=== PATIENT | female | born 1965 | race Caucasian/White ===

== ENCOUNTER → 2019-06-19 | Outpatient (CLI) | payer BC ==
--- NOTE | 2019-06-19 08:51 | US ---
EXAMINATION TYPE: US pelvis complete transvag DATE OF EXAM: 06/19/2019 COMPARISON: NONE CLINICAL HISTORY: N95.0 post menopausal bleeding. TECHNIQUE: . Transabdominal sonographic images of the pelvis were acquired. Transvaginal sonographi c images were medically necessary to better assess the following anatomy: uterus and ovaries Date of LMP: 2017 EXAM MEASUREMENTS: Uterus: 10.6 x 6.1 x 5.9 cm Endometrial Stripe: 1.7 cm Right Ovary: 2.1 x 1.7 x 1.4 cm Left Ovary: 1.7 x 1.7 x 1.1 cm 1. Uterus: Anteverted Bulky and heterogeneous, hypoechoic area measuring 1.6 x 1.0 x 1.2 cm, proba ble fibroid. Nabothian cysts visualized 2. Endometrium: Thickened and heterogeneous 3. Right Ovary: wnl 4. Left Ovary: wnl 5. Bilateral Adnexa: wnl 6. Posterior cul-de-sac: wnl IMPRESSION: 1. Probable uterine fibroid. 2. Thickened and heterogenous endometrium.
[2019-06-19 17:19] LABS: Estradiol 53.4 pg/mL; Follicle Stimulating Hormone 21.9 mIU/mL
== END | disposition home or self-care (01) ==
LOC: RADUSWWP 08:08
PROVIDERS: ATTEND Obstetrics & Gynecology
DX: N95.0 Postmenopausal bleeding (principal)
CPT/HCPCS: 76830; 76856; 82670; 83001

== ENCOUNTER → 2019-07-04 | Outpatient (CLI) | payer BC | END | disposition home or self-care (01) | LOC: LABWHC1 08:44 | PROVIDERS: ATTEND Obstetrics & Gynecology | DX: Z11.59 Encounter for screening for other viral diseases (principal) | CPT/HCPCS: 87635 ==

== ENCOUNTER 2019-07-08 06:04 | Day surgery (SDC) | payer BC ==
[2019-07-02 14:11] VITALS: BMI 40.4
--- NOTE | 2019-07-07 18:37 | P.HPOB ---
History of Present Illness H&P Date: 07/07/19 Chief Complaint: Postmenopausal bleeding This patient is a pleasant 53-year-old 5 para 5 female who presented to my office for complaints of postmenopausal bleeding since the end of April. Patient had a transvaginal ultrasound which showed thickening of the endometrium to 1.7 cm that was heterogeneous. I did check hormone levels on her which were equivocal. Patient now presents for hysteroscopy and D&C for further evaluation. Review of Systems Genitourinary: Reports as per HPI Menstruation: Reports as per HPI, Reports postmenopausal Past Medical History Past Medical History: No Reported History Additional Past Medical History / Comment(s): seasonal allergies. rt varicose veins. post mensopausal bleeding with thickened uterine lining History of Any Multi-Drug Resistant Organisms: None Reported Additional Past Surgical History / Comment(s): lt varicose vein sx. colonoscopy Past Anesthesia/Blood Transfusion Reactions: Motion Sickness, Postoperative Nausea & Vomiting (PONV) Past Psychological History: No Psychological Hx Reported Smoking Status: Never smoker Past Alcohol Use History: None Reported Past Drug Use History: None Reported - Past Family History Father Family Medical History: Cancer, Deep Vein Thrombosis (DVT) Mother Family Medical History: Cancer Medications and Allergies Home Medications Medication Instructions Recorded Confirmed Type Meclizine [Antivert] 25 mg PO TID PRN 03/12/14 07/02/19 History Aspirin [Adult Low Dose Aspirin EC] 81 mg PO DAILY 07/02/19 07/02/19 History Loratadine [Claritin] 10 mg PO DAILY 07/02/19 07/02/19 History Multivitamins, Thera [Multivitamin 1 tab PO DAILY 07/02/19 07/02/19 History (formulary)] Allergies Allergy/AdvReac Type Severity Reaction Status Date / Time No Known Allergies Allergy Verified 07/02/19 14:06 Exam - OBG Physical Exam Abdomen: bowel sounds normal, no diffuse tenderness, no bruit present, no guarding noted, no hepatomegaly, no splenomegaly, no mass Vulva: both: normal Vagina: normal moisture, no discharge Cervix: no lesion, no discharge Uterus: normal size, normal contour Adnexa: both: normal Results Transvaginal ultrasound shows a small fibroid. Endometrium was 1.7 cm which is heterogeneous. Assessment and Plan Assessment: This is a pleasant 53-year-old 5 para 5 female with a recent history of postmenopausal bleeding and abnormal thickening on pelvic ultrasound. Plan is hysteroscopy and D&C for further evaluation. Patient understands this surgery and risks including risks of infection, bleeding, possible uterine perforation. All the patient's questions are answered and a written consent is obtained. (1) Post-menopausal bleeding Status: Acute Code(s): N95.0 - POSTMENOPAUSAL BLEEDING SNOMED Code(s): 17756113 (2) Endometrial thickening on ultrasound Status: Acute Code(s): R93.89 - ABNORMAL FINDINGS ON DX IMAGING OF OTH BODY STRUCTURES SNOMED Code(s): 270783244
[~2019-07-08 06:04] MED LIST: DEXAMETHASONE SOD PHOSPHATE 10 MG/ML 1 ML VIAL IV ONE; HYDROmorphone 0.5 MG/0.5 ML SYRINGE IVP PRN; LACTATED RINGERS 1,000 ML IV SCH; LIDOCAINE 1% (10MG/ML) FOR IV START INTRADERMA PRN; MIDAZOLAM 2 MG/2 ML VIAL IV PRN; ONDANSETRON 4 MG/2 ML VIAL IVP ONE; Pre Op ABX Message 1 EACH MISC MISCELLANE ONE; fentaNYL (PF) 50 MCG/ML 2 ML AMP IV PRN
[2019-07-08 06:28] VITALS: RESP 16
[2019-07-08] MEDS ORDERED: SCOPOLAMINE 1.5MG/72HR PATCH TRANSDERM ONE (06:39)
[2019-07-08] MEDS ORDERED: MIDAZOLAM 2 MG/2 ML VIAL ONE (06:53)
[2019-07-08] MEDS ORDERED: LIDOCAINE 1% INJ 10MG/ML (20 ML MDV) ONE (06:53)
[2019-07-08] MEDS ORDERED: SUCCINYLCHOLINE CHLORIDE 100 MG/5 ML SYR IV ONE (06:53)
[2019-07-08] MEDS ORDERED: PROPOFOL 10 MG/ML 20 ML VIAL IV ONE (06:53)
[2019-07-08] MEDS ORDERED: ONDANSETRON 4 MG/2 ML VIAL ONE (06:53)
[2019-07-08] MEDS ORDERED: KETOROLAC 30 MG/ML 1 ML VIAL ONE (06:53)
[2019-07-08 07:33] VITALS: TEMP 97.2
--- NOTE | 2019-07-08 07:36 | P.OP ---
Date of Procedure: 07/08/19 Preoperative Diagnosis: Post menopausal bleeding with endometrial thickening Postoperative Diagnosis: Same Procedure(s) Performed: #1: Hysteroscopy #2: Dilation and curettage Anesthesia: LARRY Surgeon: Casper Carrillo Estimated Blood Loss (ml): 10 Urine output (ml): 50 Pathology: other (Uterine curettings) Condition: stable Disposition: PACU Indications for Procedure: Please see dictated H&P for intimate details of this patient's admission. Brief summary this pleasant 53-year-old female with postmenopausal bleeding and abnormal thickening on transvaginal ultrasound. Patient I discussed further evaluation elected proceed with hysteroscopy D&C for further investigation. Patient understands this surgery and risks including risks of infection, bleeding, possible uterine perforation. All the patient's questions are answered written consent is obtained. Operative Findings: This patient had some thickening anteriorly and there was a benign-appearing polyp posteriorly that was about 1 cm. Description of Procedure: This patient is taken to the operating room where she is laid in the supine position. She subsequent undergoes general endotracheal anesthesia without incident. With an adequate level of anesthesia she's placed in dorsal lithotomy position. She has a vaginal perineal prep and drape. Examination under anesthesia shows a mid position uterus of normal size. Bladder is drained for clear urine at this time. Weighted speculum placed in the posterior vagina. The anterior lip of the cervix was grabbed with an Allis clamp. I didn't sound the uterus to 9.5 cm. Gentle dilation is then done of the endocervix to allow the hysteroscope easily and uterine cavity. Using saline solution, hysteroscopy is performed and the uterine cavity is completely observed. There is a benign appearing polyp posteriorly about 1 cm. There is some thickening anteriorly but otherwise the cavity appears smooth. With this done the hysteroscope was then removed. Cervix is dilated more to allow the polyp forceps easily uterine cavity. Using polyp forceps on below remove multiple pieces of tissue. A gentle but thorough 4 quadrant curettage is then done again for adequate sampling. All this tissue is sent off to pathology. With this done the procedure is ended. The Allis clamp point speculum removed. All counts are correct 3. Patient is awakened from anesthesia and taken recovery room satisfactory condition. There are no complications.
[2019-07-08 08:41] VITALS: BP 117/76; PULSE 64
== END 2019-07-08 08:55 | disposition home or self-care (01) ==
LOC: OR 06:04
PROVIDERS: ATTEND Obstetrics & Gynecology
DX: N84.0 Polyp of corpus uteri (principal); N95.0 Postmenopausal bleeding; Z82.49 Family history of ischemic heart disease and other diseases of the circulatory system; Z80.9 Family history of malignant neoplasm, unspecified; K21.9 Gastro-esophageal reflux disease without esophagitis; E66.01 Morbid (severe) obesity due to excess calories; Z68.41 Body mass index [BMI] 40.0-44.9, adult; Z79.82 Long term (current) use of aspirin; Z79.899 Other long term (current) drug therapy
CPT/HCPCS: 58558; 88305; J2250; J1100; J2405; J2001; J1885; J0330; J2704

== ENCOUNTER → 2019-08-04 | Outpatient (CLI) | payer BC ==
--- NOTE | 2019-08-04 13:13 | MM ---
Reason for exam: screening (asymptomatic). Last mammogram was performed 1 year and 4 months ago. History: Patient is postmenopausal. Excisional biopsy of the left breast, 2014. Physical Findings: A clinical breast exam by your physician is recommended on an annual basis and results should be correlated with mammographic findings. MG Screening Mammo w CAD Bilateral CC and MLO view(s) were taken. XCCL view(s) were taken of the right breast. Prior study comparison[place] [facility] [place] [facility] [place] are scattered fibroglandular densities. Previous mammotome biopsy in the left breast. There is chronic nodularity in the left axilla centrally. There is no discrete abnormality. ASSESSMENT: Benign, BI-RAD 2 RECOMMENDATION: Routine screening mammogram of both breasts in 1 year.
== END | disposition home or self-care (01) ==
LOC: RADMAMWWP 11:14
PROVIDERS: ATTEND Obstetrics & Gynecology
DX: Z12.31 Encounter for screening mammogram for malignant neoplasm of breast (principal)
CPT/HCPCS: 77067

== ENCOUNTER → 2019-08-28 | Outpatient (CLI) | payer BC | END | disposition home or self-care (01) | LOC: LABPAT 12:54 | PROVIDERS: ATTEND Obstetrics & Gynecology | DX: Z01.818 Encounter for other preprocedural examination (principal); Z13.29 Encounter for screening for other suspected endocrine disorder; L65.9 Nonscarring hair loss, unspecified | CPT/HCPCS: 36415; 80048; 84439; 84443; 85025; 86850; 86900; 86901 ==

== ENCOUNTER 2019-09-04 06:02 | Day surgery (SDC) | payer BC ==
[2019-08-28 14:48] LABS: Basophils % (A) 0 %; Eosinophils # (A) 0.3 k/uL (0-0.7); Eosinophils % (A) 3 %; HCT 43.9 % (34.0-46.0); HGB 15.2 gm/dL (11.4-16.0); Lymphocytes # (A) 2.4 k/uL (1.0-4.8); Lymphocytes % (A) 28 %; MCH 31.8 pg (25.0-35.0); MCHC 34.5 g/dL (31.0-37.0); Mean Platelet Volume 6.9; Monocytes # (A) 0.4 k/uL (0-1.0); Monocytes % (A) 4 %; Neutrophils # (A) 5.4 k/uL (1.3-7.7); Neutrophils % (A) 62 %; Platelet Count 269 k/uL (150-450); RBC 4.78 m/uL (3.80-5.40); RDW 12.5 % (11.5-15.5); WBC 8.7 k/uL (3.8-10.6)
[2019-08-28 14:58] LABS: African American GFR (CKD) >90 (>60 ml/min/1.73 sqM); Anion Gap 8 mmol/L; Blood Urea Nitrogen 12 mg/dL (7-17); Calcium 9.7 mg/dL (8.4-10.2); Carbon Dioxide 29 mmol/L (22-30); Chloride 103 mmol/L (98-107); Glucose 90 mg/dL (74-99); Non-African American GFR(CKD) >90 (>60 ml/min/1.73 sqM); Potassium 4.7 mmol/L (3.5-5.1); Sodium 140 mmol/L (137-145)
[2019-08-28 15:13] LABS: T4, Free (Free Thyroxine) 1.06 ng/dL (0.78-2.19)
[2019-08-29 14:56] VITALS: BMI 40.1
--- NOTE | 2019-09-03 16:39 | P.HPOB ---
History of Present Illness H&P Date: 09/03/19 Chief Complaint: Atypical endometrial hyperplasia Patient is a 52-year-old female who had a D&C for post bleeding was noted to have endometrial hyperplasia. Both typical and atypical are noted. She is scheduled for a robotic-assisted laparoscopic hysterectomy with bilateral salpingo-oophorectomy. She is aware that there is a slight risk of concurrent cancer within the tissue sample which may require further surgery. She is also aware of risks do include but aren't limited to bleeding and infection, damage to bladder, to bowel injury, nerve injury, ureteral injury, as well as potential anesthetic issues and nerve or vessel damage. We reviewed the procedure in detail and all questions are answered for her prior to proceeding to the operating room. She is scheduled again for a robotic-assisted laparoscopic hysterectomy with bilateral salpingo-oophorectomy Past Medical History Additional Past Medical History / Comment(s): RT VARICOSE VEIN. SEASONAL ALLERGIES History of Any Multi-Drug Resistant Organisms: None Reported Past Surgical History: Uterine Ablation Additional Past Surgical History / Comment(s): LT VARICOSE VEIN SX. COLONOSCOPY Past Anesthesia/Blood Transfusion Reactions: Motion Sickness, Postoperative Nausea & Vomiting (PONV) Smoking Status: Never smoker - Past Family History Mother Family Medical History: Cancer Father Family Medical History: Cancer, Deep Vein Thrombosis (DVT) Medications and Allergies Home Medications Medication Instructions Recorded Confirmed Type Meclizine [Antivert] 25 mg PO TID PRN 03/12/14 08/29/19 History Aspirin [Adult Low Dose Aspirin EC] 81 mg PO DAILY 07/02/19 08/29/19 History Loratadine [Claritin] 10 mg PO DAILY 07/02/19 08/29/19 History Multivitamins, Thera [Multivitamin 1 tab PO DAILY 07/02/19 08/29/19 History (formulary)] Ibuprofen [Motrin] 600 mg PO Q6HR PRN #30 tab 07/08/19 08/29/19 Rx Allergies Allergy/AdvReac Type Severity Reaction Status Date / Time No Known Allergies Allergy Verified 08/29/19 14:44 Exam Osteopathic Statement: *. No significant issues noted on an osteopathic structural exam other than those noted in the History and Physical/Consult. - OBG Physical Exam Breast: both: normal (no masses) Abdomen: Obese Abdomen: bowel sounds normal, no diffuse tenderness, no bruit present, no guarding noted, no hepatomegaly, no splenomegaly, no mass Vulva: both: normal Vagina: normal moisture, no discharge Cervix: no lesion, no discharge Uterus: normal size, normal contour Adnexa: both: normal Anus/Rectum: normal perianal skin, no rectal mass, no hemorrhoids, heme negative Results Result Diagrams: 08/28/19 13:56 08/28/19 13:56
[~2019-09-04 06:02] MED LIST changes: -DEXAMETHASONE SOD PHOSPHATE 10 MG/ML 1 ML VIAL IV ONE; -HYDROmorphone 0.5 MG/0.5 ML SYRINGE IVP PRN; -LACTATED RINGERS 1,000 ML IV SCH; -LIDOCAINE 1% (10MG/ML) FOR IV START INTRADERMA PRN; -MIDAZOLAM 2 MG/2 ML VIAL IV PRN
[2019-09-04] MEDS ORDERED: ONDANSETRON 4 MG/2 ML VIAL ONE (06:37)
[2019-09-04] MEDS: LACTATED RINGERS 1,000 ML IV SCH ×2 (06:46→10:37)
[2019-09-04] MEDS ORDERED: DEXAMETHASONE SOD PHOSPHATE 10 MG/ML 1 ML VIAL IV ONE (06:47)
[2019-09-04] MEDS ORDERED: SCOPOLAMINE 1.5MG/72HR PATCH TRANSDERM ONE (06:47)
[2019-09-04] MEDS ORDERED: fentaNYL (PF) 50 MCG/ML 2 ML AMP ONE (07:33)
[2019-09-04] MEDS ORDERED: PROPOFOL 10 MG/ML 20 ML VIAL IV ONE (07:33)
[2019-09-04] MEDS ORDERED: ROCURONIUM BROMIDE 10 MG/ML 5 ML VIAL IV ONE (07:33)
[2019-09-04] MEDS ORDERED: HYDROmorphone (PF) 1 MG/ML ONE (07:33)
[2019-09-04] MEDS ORDERED: KETOROLAC 30 MG/ML 1 ML VIAL ONE (07:33)
[2019-09-04] MEDS ORDERED: MIDAZOLAM 2 MG/2 ML VIAL ONE (07:33)
[2019-09-04] MEDS ORDERED: NEOSTIGMINE 1 MG/ML 10 ML VIAL ONE (07:33)
[2019-09-04] MEDS ORDERED: SUCCINYLCHOLINE CHLORIDE 100 MG/5 ML SYR IV ONE (07:33)
[2019-09-04] MEDS ORDERED: GLYCOPYRROLATE 0.2 MG/ML 2 ML VIAL ONE (07:33)
[2019-09-04] MEDS ORDERED: hydrALAZINE HCL 20 MG/ML 1 ML VIAL ONE (07:33)
[2019-09-04] MEDS ORDERED: LIDOCAINE 1% INJ 10MG/ML (20 ML MDV) ONE (07:33)
[2019-09-04] MEDS ORDERED: ceFAZolin 1,000 MG VIAL IVPB ONE (07:42)
[2019-09-04] MEDS ORDERED: BUPIVACAINE (PF) 0.25% 30 ML VIAL SQ ONE ×2 (07:55)
[2019-09-04] MEDS ORDERED: SIMETHICONE 80 MG CHEWABLE PO PRN (08:58)
[2019-09-04] MEDS ORDERED: KETOROLAC 30 MG/ML 1 ML VIAL IVP PRN (08:58)
[2019-09-04] MEDS ORDERED: ONDANSETRON 4 MG/2 ML VIAL IVP PRN (08:58)
[2019-09-04] MEDS ORDERED: HYDROcodone/APAP 7.5-325MG 1 EACH TAB PO PRN (09:01)
--- NOTE | 2019-09-04 09:07 | P.OP ---
Date of Procedure: 09/04/19 Preoperative Diagnosis: Complex hyperplasia Postoperative Diagnosis: Same Procedure(s) Performed: Robotic-assisted left scopic hysterectomy with bilateral salpingo-oophorectomy Anesthesia: LARRY Surgeon: Abiodun Zaman Flag Signaler #1: Lynette Sandoval Estimated Blood Loss (ml): 50 IV fluids (ml): 800 Urine output (ml): 200 Pathology: other (uterus, cervix, fallopian tubes, and ovaries) Condition: stable Disposition: floor Operative Findings: Tissue pathology pending Description of Procedure: Patient was taken to the operating suite where a general anesthetic was found be adequate. She was prepped and draped in the normal sterile fashion and placed in the dorsal lithotomy position. Weighted second was then inserted anterior lip surface identified grasped with single tooth tenaculum and sounded to 9 cm. Cervix was then dilated and cup size was measured to 3.5 cm and Zoe manipulator was inserted without difficulty with sutures placed at 3 and 9 for assistance in removal. The remainder of the incidents were then removed and a Garcia cath was placed. Gloves were then changed and attention attention was turned to the abdominal portion procedure where 3 mL of quarter percent Marcaine was injected periumbilically. Through this injected anesthetic a 5 mm skin incision was made and through this incision under direct visualization with an optical trocar and sleeve the camera was inserted. Once peritoneal placement was assured gas was allowed to fully and slick abdomen and patient was then placed in steep Trendelenburg position. 28 mm skin incision was then made lateral to the umbilicus approximately 12 cm and these 8 mm robotic ports were then placed under direct visualization. Between the left lateral and the medial port a $0.01 immune incision was made and through this incision a 10 mm pet care assistant port was placed. Camera port was then exchanged for robotic port and robot was brought in and docked. Once fully docked a scissor was placed in the forearm and a Maryland grasper in the 2 arm. At this point I broke scrub and went to the console. Observations pelvis were noted. Patient had been placed and 25 Trendelenburg. Bowels moved out of the operative field as best as possible. Initially uterus was elevated and tipped to the right side and the left fallopian tube was elevated and the infundibular pelvic ligament was identified cauterized transected and then the mesosalpinx tissue was cauterized and transected to the level of the round ligament. Round blade was then cauterized transected and anterior posterior leafs were developed. Vascular on the left side of the uterus was then cauterized once this was completed with some dissection down to approximately the level of the cardinal ligaments bladder flap was identified elevated and entered with metastases scissors and carried across face uterus undermining with [place] incising with a scissor. Latter was then dissected out of the operative field and attention was turned to the right side of the uterus which was developed in similar fashion. This completed bladder was verified it was out of the operative field and vascularity [place] right and left side were felt to be cauterized. Balloon was then blown up in the Zoe manipulator and an anterior colpotomy was made. This incision was then followed around in a 360 fashion. Cheating head when necessary to maintain ex cellent hemostasis following the cup the entire way with the scissor. Once 3 and 60 was accomplished uterus was brought into the vagina to maintain pneumoperitoneum and pedicles were verified to be hemostatic. Once this was accomplished incidents were exchanged for a make suture cut and a Rhys grasper and the vaginal cuff was closed with 20 be lock suture in a running fashion. Once this was completed pelvis was irrigated no bleeding is noted on the pedicles and therefore Allis was removed and gas allowed to expel from the abdomen. 5 deep breaths were provided during this process. At this point Dr. Sandoval close the incision subcuticularly and I did a cystoscopy with excellent flow noted from both ureteral jets. The remaining 7 mL of quarter percent Marcaine was then injected around these incisions. Sponge, lap, needle counts were all correct 2. Patient was then taken to the recovery room in stable and satisfactory condition.
[2019-09-04] MEDS ORDERED: MECLIZINE 25 MG TAB PO PRN (10:16)
[2019-09-04] MEDS: SENNOSIDES-DOCUSATE SODIUM 1 EACH TAB PO SCH ×2 (10:52→20:00)
[2019-09-04] MEDS: amLODIPine 5 MG TAB PO SCH (10:53)
[2019-09-04] MEDS: PANTOPRAZOLE 40 MG/10 ML VIAL IVP SCH (13:42)
[2019-09-04 14:38] LABS: Basophils % (A) 0 %; Eosinophils % (A) 0 %; HCT 44.2 % (34.0-46.0); HGB 14.8 gm/dL (11.4-16.0); Lymphocytes # (A) 0.9 k/uL (1.0-4.8); Lymphocytes % (A) 7 %; MCH 31.4 pg (25.0-35.0); MCHC 33.5 g/dL (31.0-37.0); MCV 93.9 fL (80.0-100.0); Mean Platelet Volume 7.2; Monocytes # (A) 0.3 k/uL (0-1.0); Monocytes % (A) 2 %; Neutrophils % (A) 91 %; Platelet Count 249 k/uL (150-450); RBC 4.71 m/uL (3.80-5.40); RDW 12.4 % (11.5-15.5); WBC 13.2 k/uL (3.8-10.6)
[2019-09-04 14:50] LABS: ALT 53 U/L (4-34); AST 51 U/L (14-36); African American GFR (CKD) >90 (>60 ml/min/1.73 sqM); Albumin 4.2 g/dL (3.5-5.0); Alkaline Phosphatase 66 U/L (38-126); Anion Gap 12 mmol/L; Blood Urea Nitrogen 12 mg/dL (7-17); Calcium 8.9 mg/dL (8.4-10.2); Carbon Dioxide 21 mmol/L (22-30); Chloride 102 mmol/L (98-107); Glucose 222 mg/dL (74-99); Non-African American GFR(CKD) >90 (>60 ml/min/1.73 sqM); Potassium 4.3 mmol/L (3.5-5.1); Sodium 135 mmol/L (137-145); Total Bilirubin 0.6 mg/dL (0.2-1.3); Total Protein 6.9 g/dL (6.3-8.2)
--- NOTE | 2019-09-04 15:39 | CONS ---
CONSULTATION REASON FOR CONSULTATION: Advice regarding hypertension, requested by Dr. Zaman. HISTORY OF PRESENT ILLNESS: This 53-year-old woman with a past medical history of multiple medical problems, including history, right varicose vein, seasonal allergies, history of uterine ablation, being followed by Dr. Solorio in the outpatient setting, was admitted after robotic-assisted hysterectomy with bilateral salpingo-oophorectomy by Dr. Zaman. The patient was found to be hypertensive postoperatively and is admitted for further evaluation and treatment. The blood pressure is elevated at 158/72 and 150/71. There is no history of fever, rigor or chills. No history of headache. No chest pain or palpitation at this time. PAST MEDICAL HISTORY: History of varicose veins, seasonal allergies, hysterectomy, uterine ablation. HOME MEDICATIONS: 1. Multivitamins 1 p.o. daily. 2. Antivert 25 mg t.i.d. p.r.n. 3. Claritin 10 mg daily. 4. Motrin 600 mg t.i.d. p.r.n. 5. Aspirin 81 mg daily. ALLERGIES: NONE. FAMILY HISTORY: History of cancer in the family. SOCIAL HISTORY: No history of smoking. No history of alcohol intake. REVIEW OF SYSTEMS: ENT: No diminished hearing. No diminished vision. CARDIOVASCULAR SYSTEM: No angina, palpitations. RESPIRATORY SYSTEM: No cough, hemoptysis. GI: No nausea, vomiting. : No dysuria or retention. NERVOUS SYSTEM: No numbness, weakness. ALLERGY/IMMUNOLOGY: No asthma, hayfever. MUSCULOSKELETAL: As mentioned earlier. HEMATOLOGY/ONCOLOGY: No history of anemia. ENDOCRINE: No history of diabetes, hypothyroidism. CONSTITUTIONAL: As mentioned earlier. DERMATOLOGY: Negative. RHEUMATOLOGY: Negative. PSYCHIATRY: As mentioned earlier. PHYSICAL EXAMINATION: Patient alert and oriented x3. Pulse 68, blood pressure 131/77, respiration 18, temperature 97.8, pulse ox 98% on room air. HEENT: Conjunctivae normal. NECK: No jugular venous distention. CARDIOVASCULAR SYSTEM: S1, S2 muffled. RESPIRATORY SYSTEM: Breath sounds diminished at the bases. No rhonchi. No crackles. ABDOMEN: Soft. Status post surgery. LEGS: No edema. No swelling. NERVOUS SYSTEM: No focal deficit. SKIN: No ulcer, rash, bleeding. JOINTS: No active deforming arthropathy. LABS: WBC 13.2. Sodium 135. Glucose is 222. AST is 51, ALT is 53. ASSESSMENT: 1. Status post robotic-assisted hysterectomy with bilateral salpingo-oophorectomy. 2. Hypertension. 3. Increased white count, possibly reactive. 4. Hyponatremia. 5. Elevated random glucose. 6. Increased AST, ALT. 7. History of varicose veins. 8. History of seasonal allergies. 9. History of motion sickness. 10.Obesity with body mass index of 40.8. 11.FULL CODE. RECOMMENDATIONS AND DISCUSSION: In this 53-year-old woman who presented with multiple complex medical issues, we will monitor the patient closely. I would recommend a small dose of Norvasc 5 mg daily and continue to monitor. Otherwise, the patient is at present hypertensive. The patient may be sent home on prescription of Norvasc. Otherwise, I recommend the patient follow blood pressure closely in the outpatient setting. I would also recommend repeat labs. Several lab abnormalities are detected which could be followed up in the outpatient setting. We will follow the patient closely with you while the patient is hospitalized. Thank you, Dr. Zaman, for letting us participate in the care of this patient. A copy of this dictation is being forwarded to Dr. Solorio, who is the primary physician. MMODL / IJN: [id number] /
[2019-09-04 20:10] VITALS: RESP 16
[2019-09-04 21:16] LABS: Glucose,Whole Blood 134 mg/dL (75-99)
[2019-09-05 07:23] LABS: Glucose,Whole Blood 106 mg/dL (75-99)
[2019-09-05 07:55] LABS: Basophils % (A) 0 %; Eosinophils % (A) 0 %; HCT 39.2 % (34.0-46.0); HGB 13.1 gm/dL (11.4-16.0); Lymphocytes # (A) 2.8 k/uL (1.0-4.8); Lymphocytes % (A) 22 %; MCH 30.6 pg (25.0-35.0); MCHC 33.4 g/dL (31.0-37.0); MCV 91.5 fL (80.0-100.0); Mean Platelet Volume 7.3; Monocytes # (A) 0.5 k/uL (0-1.0); Monocytes % (A) 4 %; Neutrophils % (A) 71 %; Platelet Count 239 k/uL (150-450); RBC 4.29 m/uL (3.80-5.40); RDW 12.6 % (11.5-15.5); WBC 12.7 k/uL (3.8-10.6)
[2019-09-05 08:10] LABS: African American GFR (CKD) >90 (>60 ml/min/1.73 sqM); Anion Gap 7 mmol/L; Blood Urea Nitrogen 11 mg/dL (7-17); Calcium 8.9 mg/dL (8.4-10.2); Carbon Dioxide 27 mmol/L (22-30); Chloride 105 mmol/L (98-107); Glucose 107 mg/dL (74-99); Non-African American GFR(CKD) >90 (>60 ml/min/1.73 sqM); Potassium 4.6 mmol/L (3.5-5.1); Sodium 139 mmol/L (137-145)
--- NOTE | 2019-09-05 08:22 | P.DS ---
Providers Expected date of discharge: 09/05/19 Attending physician: Abiodun Zaman Consults: 09/04/19 08:58 Consult Physician Routine Consulting Provider: Elvia Cruz Consult Reason/Comments: medical managment Do you want consulting provider notified?: Yes Primary care physician: Elvia Cruz Hospital Course: Helga is doing very well post op day 1. She is involuting, voiding and tolerating her diet. She voices no complaints. Vital signs are stable and afebrile. Heart regular, lungs clear, extremities without pain. Abdomen is soft she has positive bowel sounds and her incisions are intact. She is passing flatus and voices no other complaints and is requesting discharge to home today. Prescription for Motrin and Batchelor were forwarded to the pharmacy and all other questions are answered for her prior to her discharge. We did spend several minutes reviewing discharge instructions and she is stable for discharge this time. Patient Condition at Discharge: Good Plan - Discharge Summary Discharge Rx Participant: Yes New Discharge Prescriptions: New Ibuprofen [Motrin] 600 mg PO Q6HR PRN #30 tab PRN Reason: Pain HYDROcodone/APAP 5-325MG [Batchelor 5-325] 1 tab PO Q4HR PRN #30 tab PRN Reason: Pain No Action Meclizine [Antivert] 25 mg PO TID PRN PRN Reason: Vertigo Multivitamins, Thera [Multivitamin (formulary)] 1 tab PO DAILY Loratadine [Claritin] 10 mg PO DAILY Aspirin [Adult Low Dose Aspirin EC] 81 mg PO DAILY Ibuprofen [Motrin] 600 mg PO Q6HR PRN #30 tab PRN Reason: Pain Discharge Medication List Meclizine [Antivert] 25 mg PO TID PRN 03/12/14 [History] Aspirin [Adult Low Dose Aspirin EC] 81 mg PO DAILY 07/02/19 [History] Loratadine [Claritin] 10 mg PO DAILY 07/02/19 [History] Multivitamins, Thera [Multivitamin (formulary)] 1 tab PO DAILY 07/02/19 [History] Ibuprofen [Motrin] 600 mg PO Q6HR PRN #30 tab 07/08/19 [Rx] HYDROcodone/APAP 5-325MG [[place]lor 5-325] 1 tab PO Q4HR PRN #30 tab 07/24/20 [Rx] Ibuprofen [Motrin] 600 mg PO Q6HR PRN #30 tab 09/05/19 [Rx] Follow up Appointment(s)/Referral(s): Abiodun Zaman DO [Doctor of Osteopathic Medicine] - 1 Week Activity/Diet/Wound Care/Special Instructions: No heavy lifting, limit stairs and driving and complete pelvic rest. If any high temperatures, heavy bleeding, or severe pain call my office Discharge Disposition: HOME SELF-CARE
[2019-09-05 08:30] VITALS: TEMP 97.8
[2019-09-05] MEDS: amLODIPine 5 MG TAB PO SCH (09:17)
[2019-09-05] MEDS: PANTOPRAZOLE 40 MG/10 ML VIAL IVP SCH (09:17)
[2019-09-05 09:18] VITALS: PULSE 52
[2019-09-05 09:41] VITALS: BP 162/76
== END 2019-09-05 09:55 | disposition home or self-care (01) ==
LOC: OR 06:02 → 4FBP 09:23 → OR 09-05 09:55
PROVIDERS: ATTEND Obstetrics & Gynecology
DX: C54.1 Malignant neoplasm of endometrium (principal); D25.9 Leiomyoma of uterus, unspecified; N72 Inflammatory disease of cervix uteri; N83.292 Other ovarian cyst, left side; N83.291 Other ovarian cyst, right side; N84.0 Polyp of corpus uteri; I10 Essential (primary) hypertension; E87.1 Hypo-osmolality and hyponatremia; E66.9 Obesity, unspecified; Z68.41 Body mass index [BMI] 40.0-44.9, adult; Z79.1 Long term (current) use of non-steroidal anti-inflammatories (NSAID); Z79.82 Long term (current) use of aspirin; Z79.899 Other long term (current) drug therapy; Z80.9 Family history of malignant neoplasm, unspecified; Z82.49 Family history of ischemic heart disease and other diseases of the circulatory system; Z98.890 Other specified postprocedural states; I83.91 Asymptomatic varicose veins of right lower extremity; J30.2 Other seasonal allergic rhinitis
CPT/HCPCS: 80053; 80048; 85025 ×2; 88309; 58571; J2250; J0360; J1100; J2710; J2405; J0690; J2001; J3010; J1885; J1170; J0330; J2704; C9113; 36415; 84439; 84443; 86850; 86900; 86901; 88307

== ENCOUNTER 2020-04-05 08:17 | Day surgery (SDC) | payer BC ==
[2020-03-31 13:19] VITALS: BMI 39.6
[~2020-04-05 08:17] MED LIST changes: +LACTATED RINGERS 1,000 ML IV SCH; +LIDOCAINE 1% (10MG/ML) FOR IV START INTRADERMA PRN; -ONDANSETRON 4 MG/2 ML VIAL IVP ONE; -Pre Op ABX Message 1 EACH MISC MISCELLANE ONE; -fentaNYL (PF) 50 MCG/ML 2 ML AMP IV PRN
[2020-04-05 08:36] VITALS: TEMP 97.6
[2020-04-05] MEDS ORDERED: LIDOCAINE 1% (10MG/ML) FOR IV START INTRADERMA ONE (08:45)
[2020-04-05] MEDS ORDERED: ONDANSETRON 4 MG/2 ML VIAL ONE (08:47)
[2020-04-05] MEDS ORDERED: ONDANSETRON 4 MG/2 ML VIAL IVP ONE (08:50)
[2020-04-05] MEDS ORDERED: MIDAZOLAM 2 MG/2 ML VIAL ONE (08:58)
[2020-04-05] MEDS ORDERED: LIDOCAINE 1% INJ 10MG/ML (20 ML MDV) ONE (08:58)
[2020-04-05] MEDS ORDERED: PROPOFOL 10 MG/ML 20 ML VIAL IV ONE (08:58)
--- NOTE | 2020-04-05 09:21 | P.PCN ---
Date of Procedure: 04/05/20 Description of Procedure: BRIEF HISTORY: Patient is a 54-year-old female presenting for colonoscopy for family history of colon cancer. Last colonoscopy 5 years ago normal per her recollection. No change in bowel habits or abdominal pain. Family history of colon cancer in her mother. PROCEDURE PERFORMED: Colonoscopy. PREOPERATIVE DIAGNOSIS: Family history of colon cancer, last colonoscopy 5 years ago. ESTIMATED BLOOD LOSS: Minimal. IV sedation per Anesthesia. PROCEDURE: After informed consent was obtained, the patient, was brought into the endoscopy unit. IV sedation was administered by Anesthesia under continuous monitoring. Digital rectal examination was normal. Initially the Olympus CF-190 flexible video colonoscope was then inserted in the rectum, gradually advanced into the cecum without any difficulty. Careful examination was performed as the scope was gradually being withdrawn. Ileocecal valve and the appendiceal orifice were visualized and appeared normal. Prep was excellent. Mucosa of the cecum, ascending colon, transverse colon, descending colon, sigmoid colon, and rectum appeared normal. A few scattered diverticula noted throughout the colon. Retroflexion was performed in the rectum and no lesions were seen, low-grade internal hemorrhoids. The patient tolerated the procedure well. IMPRESSION: Normal-appearing colon from rectum to cecum. Mild pandiverticulosis. Internal hemorrhoids. RECOMMENDATIONS: Findings of this examination were discussed with the patient and her family. Okay to resume diet. Okay to resume medications. Recommend repeat colonoscopy in 5 years for family history of colon cancer.
[2020-04-05 09:23] VITALS: RESP 16
[2020-04-05 09:32] VITALS: BP 128/83; PULSE 61
== END 2020-04-05 09:52 | disposition home or self-care (01) ==
LOC: ORWHC2ENDO 08:17
PROVIDERS: ATTEND Internal Medicine
DX: Z12.11 Encounter for screening for malignant neoplasm of colon (principal); Z80.0 Family history of malignant neoplasm of digestive organs; K57.30 Diverticulosis of large intestine without perforation or abscess without bleeding; K64.8 Other hemorrhoids; R42 Dizziness and giddiness; E66.9 Obesity, unspecified; Z68.39 Body mass index [BMI] 39.0-39.9, adult; Z90.710 Acquired absence of both cervix and uterus; Z98.890 Other specified postprocedural states; Z79.82 Long term (current) use of aspirin; Z79.899 Other long term (current) drug therapy

== ENCOUNTER → 2020-09-27 | Outpatient (CLI) | payer BC ==
--- NOTE | 2020-09-27 16:50 | BD ---
EXAMINATION TYPE: Axial Bone Density DATE OF EXAM: 09/27/2020 COMPARISON: 03/11/2015 CLINICAL HISTORY: postmenopausal screening Height: 65 Weight: 243.1 FRAX RISK QUESTIONS: Alcohol (3 or more units per day): no Family History (Parent hip fracture): no Glucocorticoids (More than 3mos): no (Ex: prednisone, prednisolone, methylprednisolone, dexamethasone, and hydrocortisone). History of Fracture in Adulthood: no Secondary Osteoporosis: 1. Type 1 Diabetes: no 2. Hyperthyroidism: no 3. Menopause before 45: no 4. Malnutrition: no 5. Chronic liver disease: no Rheumatoid Arthritis: no Current Tobacco Use: no RISK FACTORS HISTORY OF: History of Wrist Fracture: left When: as a child Surgery to Spine/Hip(right/left)/Wrist (right/left): no Family History of Osteoporosis: no Active: yes Diet low in dairy products/other sources of calcium: yes Postmenopausal woman: age 51 Lost more than 2 inches in height since high school: no MEDICATIONS: vertigo meds, baby aspirin Additional History: EXAM MEASUREMENTS: Bone mineral densitometry was performed using the [employer] System. Bone mineral density as measured about the Lumbar spine is: ----- L1-L4(G/cm2): 1.190 T Score Values are as follows: ----- L2: -0.3 ----- L3: 0.5 ----- L4: 0.1 ----- L1-L4: -0.2 Bone mineral density has: decreased -0.2 % since study of: 03.11.2015 Bone mineral density about the R hip (g/cm2): 1.016 Bone mineral density about the L hip (g/cm2): 0.992 T Score values are as follows: -----R Neck: -0.2 -----L Neck: -0.3 -----R Total: 0.8 -----L Total: 0.7 Bone mineral density has: decreased -3.1 % since study of: 03.11.2015 IMPRESSION: Normal (Values between +1 and -1 indicate normal bone mass). Consider repeating this study in 5 year s or sooner if there is some new clinical indication. NOTE: T-SCORE=SD OF THE YOUNG ADULT MEAN.
--- NOTE | 2020-09-28 12:09 | MM ---
Reason for exam: screening (asymptomatic). Last mammogram was performed 1 year and 2 months ago. History: Patient is postmenopausal and has history of endometrial cancer at age 54. Excisional biopsy of the left breast, 2015. Physical Findings: Nurse did not find any significant physical abnormalities on exam. MG Screening Mammo w CAD Bilateral CC and MLO view(s) were taken. Prior study comparison: August 04, 2019, bilateral MG screening mammo w CAD. March 29, 2018, mammogram, performed at [facility]. There are scattered fibroglandular densities. There are benign appearing round calcifications bilaterally. Previous mammotome biopsy in the left breast. There is chronic nodularity bilaterally. There is no discrete abnormality. ASSESSMENT: Benign, BI-RAD 2 RECOMMENDATION: Routine screening mammogram of both breasts in 1 year.
== END | disposition home or self-care (01) ==
LOC: RADMAMWWP 09:17
PROVIDERS: ATTEND Obstetrics & Gynecology
DX: Z12.31 Encounter for screening mammogram for malignant neoplasm of breast (principal); N95.1 Menopausal and female climacteric states
CPT/HCPCS: 77067; 77080

== ENCOUNTER → 2022-10-06 | Outpatient (CLI) | payer BC ==
--- NOTE | 2022-10-09 11:39 | MM ---
Reason for Exam: Screening (asymptomatic). Last screening mammogram was performed 12 month(s) ago. Patient History: Menarche at age 12. First Full-Term at age 21. Left ovary removed at age 54. Right ovary removed at age 54. Hysterectomy at age 54. Postmenopausal. Patient has history of breast feeding. Endometrial cancer, age 54. 2015, Excisional Biopsy on the Left side. Risk Values: Linda 5 year model risk: 1.4%. NCI Lifetime model risk: 8.1%. Prior Study Comparison: 08/04/2019 Bilateral Screening Mammogram, [facility]. 09/27/2020 Bilateral Screening Mammogram, [facility]. 10/04/2021 Bilateral MG screening mammo w CAD, [facility]. Tissue Density: The breast tissue is almost entirely fat. Findings: Analyzed By CAD. Left breast biopsy clip. There is no suspicious group of microcalcifications or new suspicious mass in either breast. Overall Assessment: Negative, BI-RAD 1 Management: Screening Mammogram of both breasts in [address] [facility] will attempt to contact patient to return for supplemental views and ultrasound if indicated. Patient should continue monthly self-breast exams. A clinical breast exam by your physician is recommended on an annual basis. This exam should not preclude additional follow-up of suspicious palpable abnormalities. Note on Linda scores and lifetime risk: 1. A Linda score greater than 3% is considered moderate risk. If this is the case, consider specialist referral to assess eligibility for a risk reducing agent. 2. If overall lifetime risk for the development of breast cancer is 20% or higher, the patient may qualify for future screening with alternating mammogram and breast MRI. Electronically signed and approved by: Rob Pro DO
== END | disposition home or self-care (01) ==
LOC: RADMAMWWP 09:31
PROVIDERS: ATTEND Obstetrics & Gynecology
DX: Z12.31 Encounter for screening mammogram for malignant neoplasm of breast (principal); Z78.0 Asymptomatic menopausal state; Z85.42 Personal history of malignant neoplasm of other parts of uterus
CPT/HCPCS: 77067

== ENCOUNTER → 2023-04-18 | Outpatient (CLI) | payer BC ==
--- NOTE | 2023-04-18 08:11 | US ---
EXAMINATION TYPE: US abdomen complete DATE OF EXAM: 04/18/2023 COMPARISON: NONE CLINICAL INDICATION: Female, 57 years old with history of R10.11 RIGHT UPPER QUADRANT PAIN; general u nwellness since February TECHNIQUE: Multiple sonographic images of the abdomen are obtained. 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 There is no evidence of cholelithiasis. Common bile duct is unremarkable. The visualized portions of the sanchez creas are homogenous. The spleen is unremarkable. Kidneys are symmetric and free of hydronephrosis. No renal lesions are seen. IMPRESSION: Hepatomegaly with underlying hepatic steatosis.
== END | disposition home or self-care (01) ==
LOC: RADUSWWP 07:01
PROVIDERS: ATTEND Family Medicine
DX: R16.0 Hepatomegaly, not elsewhere classified (principal); K76.0 Fatty (change of) liver, not elsewhere classified
CPT/HCPCS: 76700

== ENCOUNTER → 2023-11-02 | Outpatient (CLI) | payer BC ==
--- NOTE | 2023-11-05 08:44 | MM ---
Reason for Exam: Screening (asymptomatic). Last mammogram was performed 1 year(s) and 1 month(s) ago. Patient History: Menarche at age 12. First Full-Term at age 21. Left ovary removed at age 54. Right ovary removed at age 54. Hysterectomy at age 54. Postmenopausal. Patient has history of breast feeding. Endometrial cancer, age 54. 2015, Excisional Biopsy on the Left side. Risk Values: Linda 5 year model risk: 1.5%. NCI Lifetime model risk: 7.9%. Prior Study Comparison: 09/27/2020 Bilateral Screening Mammogram, [facility]. 10/04/2021 Bilateral MG screening mammo w CAD, [facility]. 10/06/2022 Bilateral MG screening mammo w CAD, [facility]. Tissue Density: There are scattered areas of fibroglandular density. Findings: Analyzed By CAD. There is no suspicious group of microcalcifications or new suspicious mass in either breast. Chronic nodularity bilaterally. Benign-appearing calcifications. Overall Assessment: Benign, BI-RAD 2 Management: Screening Mammogram of both breasts in 1 year. . Patient should continue monthly self-breast exams. A clinical breast exam by your physician is recommended on an annual basis. This exam should not preclude additional follow-up of suspicious palpable abnormalities. Note on Linda scores and lifetime risk: 1. A Linda score greater than 3% is considered moderate risk. If this is the case, consider specialist referral to assess eligibility for a risk reducing agent. 2. If overall lifetime risk for the development of breast cancer is 20% or higher, the patient may qualify for future screening with alternating mammogram and breast MRI. [facility], , 11/05/2023 8:42 AM. Electronically signed and approved by: Cristopher Gordon M.D. Radiologis
== END | disposition home or self-care (01) ==
LOC: RADMAMWWP 08:59
PROVIDERS: ATTEND Family Medicine
DX: Z12.31 Encounter for screening mammogram for malignant neoplasm of breast
CPT/HCPCS: 77063; 77067